=== PATIENT | female | born 1955 | race Caucasian/White ===

== ENCOUNTER 2019-06-26 13:18 | Observation (INO) ==
[2019-06-26] MEDS ORDERED: Albuterol 2.5 MG/3 ML NEBULIZER IH PRN (13:47)
[2019-06-26] MEDS ORDERED: CeFAZolin Syr 2,000MG/20 ML 2,000 MG/20 ML SYRINGE IVPB ONE (13:47)
[2019-06-26] MEDS ORDERED: Ringers Solution, Lactated 1,000 ML IVC SCH (14:00)
[2019-06-26] MEDS ORDERED: *HR* Midazolam HCl 2 MG/2 ML VIAL ONE (14:11)
[2019-06-26] MEDS ORDERED: *HR* FentaNYL (PF) 100 MCG/2 ML VIAL ONE (14:11)
[2019-06-26] MEDS ORDERED: *HR* Propofol 200 MG/20 ML VIAL IVP ONE (14:11)
[2019-06-26] MEDS ORDERED: Ondansetron 4 MG/2 ML VIAL ONE ×2 (14:13→16:29)
[2019-06-26] MEDS ORDERED: Lidocaine -MPF 2% 2 ML VIAL ONE (14:13)
[2019-06-26] MEDS ORDERED: Famotidine 20 MG/2 ML VIAL IVP ONE (14:15)
[2019-06-26] MEDS ORDERED: Pregabalin 75 MG CAPSULE PO ONE (14:16)
[2019-06-26] MEDS ORDERED: Acetaminophen IV 1,000 MG/100 ML INFUS..BTL IVPB ONE (14:16)
[2019-06-26] MEDS ORDERED: *HR* Labetalol 20 MG/4 ML SYRINGE IVP PRN (14:18)
[2019-06-26] MEDS ORDERED: *HR* HYDROmorphone 2 MG TABLET PO PRN (14:18)
[2019-06-26] MEDS ORDERED: *HR* Promethazine 25 MG/ML VIAL IVP PRN ×2 (14:18→21:27)
[2019-06-26] MEDS ORDERED: Scopolamine Patch 1.5 MG PATCH.TD72 TD ONE (14:24)
[2019-06-26] MEDS ORDERED: *HR* OxyCODONE Immed Rel 5 MG TABLET PO SCH (14:30)
[2019-06-26] MEDS ORDERED: Bupivacaine/EPI 1:200k 0.5%PF 10 ML VIAL ONE (15:19)
[2019-06-26] MEDS ORDERED: Dexamethasone 4 MG/ML VIAL ONE (15:47)
[2019-06-26] MEDS ORDERED: EPHEDrine 50 MG/ML VIAL ONE (16:00)
[2019-06-26] MEDS ORDERED: *HR* Succinylcholine 200 MG/10 ML VIAL IVP ONE (16:02)
[2019-06-26] MEDS: *HR* HYDROmorphone (PF) 1 MG/ML SYRINGE IVP PRN ×2 (16:57→17:18)
[2019-06-26] MEDS: Ondansetron 4 MG/2 ML VIAL IVP STA (18:23)
[2019-06-26] MEDS ORDERED: Ondansetron 4 MG/2 ML VIAL IVP PRN (21:26)
[2019-06-26] MEDS ORDERED: Acetaminophen 325 MG TABLET PO PRN (21:27)
[2019-06-26] MEDS ORDERED: *HR* HYDROcodone/Acet 5/325 mg TABLET PO PRN (21:27)
[2019-06-26] MEDS ORDERED: *HR* FentaNYL (PF) 100 MCG/2 ML VIAL IVP PRN (21:29)
[2019-06-26] MEDS: Ringers Solution, Lactated 1,000 ML IVC SCH (21:48)
[2019-06-26 22:25] LABS: Alanine Aminotransferase 23 Units/L (7-52); Albumin 3.9 g/dL (3.5-5.7); Albumin/Globulin Ratio 1.6 (1.1-2.2); Alkaline Phosphatase 106 Units/L (34-104); Aspartate Amino Transferase 19 Units/L (13-39); BUN/Creatinine Ratio 18 (6-26); Bilirubin,Direct 0.1 mg/dL (0.0-0.2); Bilirubin,Indirect 0.3 mg/dL (0.0-1.0); Bilirubin,Total 0.4 mg/dL (0.3-1.0); Blood Urea Nitrogen 12 mg/dL (8-23); Calcium 8.7 mg/dL (8.6-10.3); Carbon Dioxide 25 mEq/L (23-29); Chloride 98 mEq/L (98-107); Globulin 2.4 g/dL (2.4-3.5); Glucose 156 mg/dL (70-105); Lipase 3 Units/L (11-82); Osmolality,Calculated 281 (280-300); Sodium 134 mEq/L (136-145); Total Protein 6.3 g/dL (6.4-8.9); Troponin I < 0.03 ng/mL (< 0.04); eGFR For African Americans > 60 (> 60); eGFR For Non-African Americans > 60 (> 60)
[2019-06-27] MEDS: Ringers Solution, Lactated 1,000 ML IVC SCH (04:10)
[2019-06-27 07:54] VITALS: BP 128/73
[2019-06-27] MEDS ORDERED: Budesonide/Formoterol 160/4.5 1 PUFF INH IH SCH (09:00)
[2019-06-27] MEDS ORDERED: Multivit/Ca/Min/Fe/FA 1 TAB TABLET PO SCH (09:00)
[2019-06-27] MEDS ORDERED: amLODIPine 5 MG TABLET PO SCH (09:00)
[2019-06-27] MEDS ORDERED: Cholecalciferol (D-3) 1,000 UNIT (25MCG) TABLET PO SCH (09:00)
[2019-06-27] MEDS ORDERED: Isosorbide MONOnitrate (24 HR) 30 MG TAB.ER.24H PO SCH (09:00)
== END 2019-06-27 10:21 | disposition home or self-care (01) ==
LOC: 3NENU 13:18 → SAMDAY 13:18 → 3NENU 20:26
PROVIDERS: ADMIT Family Medicine; ATTEND Orthopaedic Surgery Hand Surgery